=== PATIENT | female | born 1980 | race Caucasian/White ===

== ENCOUNTER 2018-03-05 06:28 | Inpatient (IN) | payer BC, OTHER ==
[~2018-03-05 06:28] MED LIST: CEFAZOLIN 2 GM/50 ML (PMX) 50 ML IVPB; SOD CHLORIDE 0.9% 1,000 ML IV
[2018-03-05] MEDS: INSULIN ASPART [NOVOLOG] 3 ML PEN SC ×5 (07:05→20:28)
[2018-03-05 07:09] LABS: ADD MAN DIFF? NO
[2018-03-05 07:13] LABS: WHITE BLOOD COUNT 9.9 10^3/ul (4.8-10.8)
[2018-03-05 07:13] LABS: BASOPHIL # 0.1 10^3/ul (0.0-0.1); BASOPHILS % 0.7 % (0.0-2.0); EOSINOPHILS # 0.1 10^3/ul (0.0-0.5); HEMATOCRIT 35.8 % (37.0-47.0); HEMOGLOBIN 12.6 g/dl (12.0-16.0); MEAN CORPUSCULAR HEMOGLOBIN 30.6 pg (29.0-33.0); MEAN CORPUSCULAR HGB CONC 35.2 g/dl (32.0-37.0); MEAN CORPUSCULAR VOLUME 86.9 fl (82.0-101.0); MEAN PLATELET VOLUME 9.2 fl (7.4-10.4); MONOCYTE # 0.7 10^3/ul (0.3-0.9); NEUTROPHIL # 6.9 10^3/ul (1.6-7.5); NEUTROPHILS % 70.1 % (39.0-77.0); PLATELET COUNT 266 10^3/UL (140-415); RED BLOOD COUNT 4.12 10^6/ul (4.20-5.40); RED CELL DISTRIBUTION WIDTH 12.1 % (11.5-14.5)
[2018-03-05 07:32] LABS: ALANINE AMINOTRANSFERASE 36 IU/L (13-69); ALBUMIN 4.3 g/dl (3.3-4.9); ALBUMIN/GLOBULIN RATIO 1.34; ALKALINE PHOSPHATASE 117 IU/L (42-121); ANION GAP 17 (8-16); ASPARTATE AMINO TRANSFERASE 20 IU/L (15-46); BILIRUBIN,INDIRECT 0.4 mg/dl (0-1.1); BILIRUBIN,TOTAL 0.4 mg/dl (0.2-1.3); CARBON DIOXIDE 27 mmol/L (21-31); CHLORIDE 98 mmol/L (97-110); GLUCOSE 301 mg/dl (70-220); TOTAL PROTEIN 7.5 g/dl (6.1-8.1)
[2018-03-05 07:34] LABS: INR 0.83; PROTIME 11.5 Sec (11.9-14.9); PT RATIO 0.9
[2018-03-05 07:35] LABS: BLOOD UREA NITROGEN 16 mg/dl (7-20); CALCIUM 9.4 mg/dl (8.4-10.2); CREATININE 0.54 mg/dl (0.44-1.00); PARTIAL THROMBOPLASTIN TIME 33.8 Sec (25.0-35.0); POTASSIUM 4.2 mmol/L (3.5-5.1); SODIUM 138 mmol/L (135-144)
[2018-03-05] MEDS ORDERED: MIDAZOLAM 1 MG/ML 2 ML INJ (08:04)
[2018-03-05] MEDS: LIDOCAINE 1%/EPI 30 ML INJ (08:56)
[2018-03-05] MEDS: BUPIVACAINE 0.5% (SDV) 30 ML INJ (08:56)
[2018-03-05] MEDS: POLYMYXIN/BACITRACIN 1L IRRIG (08:56)
[2018-03-05] MEDS ORDERED: morphine 10 MG INJ (11:32)
[2018-03-05] MEDS ORDERED: LIDOCAINE 2% (SDV) 5 ML INJ (12:28)
[2018-03-05] MEDS ORDERED: CEFAZOLIN 1 GM INJ (12:28)
[2018-03-05] MEDS ORDERED: ROCURONIUM 50 MG INJ (12:28)
[2018-03-05] MEDS ORDERED: PROPOFOL 20 ML (12:28)
[2018-03-05] MEDS ORDERED: ONDANSETRON 4 MG INJ (12:40)
[2018-03-05] MEDS ORDERED: SUGAMMADEX SODIUM 200 MG/2 ML VIAL IV (12:41)
[2018-03-05] MEDS ORDERED: NACL 0.9% 3 ML SYG IV (13:00)
[2018-03-05] MEDS ORDERED: DOCUSATE SODIUM 100 MG CAP PO (13:00)
[2018-03-05] MEDS ORDERED: SENNA/DOCUSATE NA (8.6MG/50MG) TAB PO (13:00)
[2018-03-05] MEDS ORDERED: HYDROCODONE/APAP (10/325) TAB PO (13:00)
[2018-03-05] MEDS ORDERED: HYDROmorphONE (0.2 MG/ML) 10ML SYG IV ×2 (13:14→13:30)
[2018-03-05] MEDS: HYDROmorphONE (0.2 MG/ML) 10ML SYG IV ×7 (13:17→17:09)
[2018-03-05] MEDS: MIDAZOLAM 1 MG/ML 2 ML INJ IV (13:27)
[2018-03-05] MEDS ORDERED: FENTAnyl 50 MCG/ML VIAL IV (13:30)
[2018-03-05] MEDS ORDERED: ONDANSETRON 4 MG INJ IV (13:30)
[2018-03-05] MEDS: FENTAnyl 50 MCG/ML VIAL IV ×2 (14:44→17:08)
[2018-03-05 14:54] LABS: ADD MAN DIFF? NO
[2018-03-05 15:05] LABS: BASOPHILS % 0.3 % (0.0-2.0); EOSINOPHILS % 0.1 % (0.0-7.0); HEMATOCRIT 30.7 % (37.0-47.0); HEMOGLOBIN 10.6 g/dl (12.0-16.0); LYMPHOCYTES # 1.1 10^3/ul (0.8-2.9); LYMPHOCYTES % 9.1 % (15.0-51.0); MEAN CORPUSCULAR HEMOGLOBIN 30.8 pg (29.0-33.0); MEAN CORPUSCULAR HGB CONC 34.5 g/dl (32.0-37.0); MEAN CORPUSCULAR VOLUME 89.2 fl (82.0-101.0); MEAN PLATELET VOLUME 9.2 fl (7.4-10.4); MONOCYTE # 0.8 10^3/ul (0.3-0.9); MONOCYTES % 6.7 % (0.0-11.0); NEUTROPHILS % 82.9 % (39.0-77.0); PLATELET COUNT 255 10^3/UL (140-415); RED BLOOD COUNT 3.44 10^6/ul (4.20-5.40); RED CELL DISTRIBUTION WIDTH 12.5 % (11.5-14.5)
[2018-03-05 15:05] LABS: WHITE BLOOD COUNT 12.1 10^3/ul (4.8-10.8)
[2018-03-05 15:18] LABS: ANION GAP 13 (8-16); CARBON DIOXIDE 28 mmol/L (21-31); CHLORIDE 101 mmol/L (97-110); GLUCOSE 250 mg/dl (70-220)
[2018-03-05 15:19] LABS: BLOOD UREA NITROGEN 14 mg/dl (7-20); CALCIUM 8.2 mg/dl (8.4-10.2); CREATININE 0.56 mg/dl (0.44-1.00); POTASSIUM 3.9 mmol/L (3.5-5.1); SODIUM 138 mmol/L (135-144)
[2018-03-05] MEDS: SOD CHLORIDE 0.9% 1,000 ML IV ×2 (17:44→18:30)
[2018-03-05] MEDS: HYDROmorphONE 0.5 MG/0.5 ML SYG IV ×2 (18:12→21:16)
[2018-03-05] MEDS ORDERED: GLUCOSE GEL 15 GRAM TUBE PO ×2 (18:30)
[2018-03-05] MEDS ORDERED: GLUCOSE GEL 15 GRAM TUBE BUCCAL (18:30)
[2018-03-05] MEDS ORDERED: DEXTROSE 50% 50 ML SYRINGE IV ×2 (18:30)
[2018-03-05] MEDS ORDERED: GLUCAGON 1 MG INJ IM (18:30)
[2018-03-05] MEDS: ATORVASTATIN 10 MG TAB PO (20:23)
[2018-03-05] MEDS: ONDANSETRON 4 MG INJ IV (20:23)
[2018-03-05 20:48] LABS: HEMATOCRIT 29.9 % (37.0-47.0); HEMOGLOBIN 10.1 g/dl (12.0-16.0)
[2018-03-06] MEDS: HYDROmorphONE 0.5 MG/0.5 ML SYG IV (00:21)
[2018-03-06] MEDS: ACCU-CHEK XX (02:00)
[2018-03-06] MEDS ORDERED: ACCU-CHEK XX (02:00)
[2018-03-06] MEDS: KETOROLAC 30 MG INJ IV ×3 (06:54→21:45)
[2018-03-06] MEDS: ONDANSETRON 4 MG INJ IV (06:59)
[2018-03-06] MEDS: INSULIN ASPART [NOVOLOG] 3 ML PEN SC ×8 (07:43→20:16)
[2018-03-06] MEDS: SOD CHLORIDE 0.9% 1,000 ML IV ×2 (07:45→21:41)
[2018-03-06] MEDS: SERTRALINE 50 MG TAB PO (08:18)
[2018-03-06] MEDS: metFORMIN 500 MG TAB PO ×2 (08:18→20:14)
[2018-03-06] MEDS: FERROUS SULFATE (EC) 325 MG TAB PO (08:18)
[2018-03-06] MEDS: DOCUSATE SODIUM 100 MG CAP PO ×2 (08:18→20:14)
[2018-03-06] MEDS: LISINOPRIL 5 MG TAB PO (08:19)
[2018-03-06] MEDS ORDERED: glipiZIDE 10 MG TAB PO (09:00)
[2018-03-06 09:25] LABS: ADD MAN DIFF? NO
[2018-03-06 09:28] LABS: BASOPHILS % 0.3 % (0.0-2.0); EOSINOPHILS % 0.2 % (0.0-7.0); HEMATOCRIT 28.3 % (37.0-47.0); HEMOGLOBIN 9.5 g/dl (12.0-16.0); LYMPHOCYTES # 0.7 10^3/ul (0.8-2.9); LYMPHOCYTES % 11.5 % (15.0-51.0); MEAN CORPUSCULAR HEMOGLOBIN 30.8 pg (29.0-33.0); MEAN CORPUSCULAR HGB CONC 33.6 g/dl (32.0-37.0); MEAN CORPUSCULAR VOLUME 91.9 fl (82.0-101.0); MEAN PLATELET VOLUME 9.7 fl (7.4-10.4); MONOCYTE # 0.6 10^3/ul (0.3-0.9); MONOCYTES % 9.8 % (0.0-11.0); NEUTROPHIL # 4.4 10^3/ul (1.6-7.5); NEUTROPHILS % 77.7 % (39.0-77.0); PLATELET COUNT 206 10^3/UL (140-415); RED BLOOD COUNT 3.08 10^6/ul (4.20-5.40); RED CELL DISTRIBUTION WIDTH 12.8 % (11.5-14.5)
[2018-03-06 09:28] LABS: WHITE BLOOD COUNT 5.7 10^3/ul (4.8-10.8)
[2018-03-06 09:35] LABS: HEMOGLOBIN A1C 7.5 % (0-5.9)
[2018-03-06 09:50] LABS: ANION GAP 12 (8-16); BLOOD UREA NITROGEN 7 mg/dl (7-20); CARBON DIOXIDE 29 mmol/L (21-31); CHLORIDE 102 mmol/L (97-110); CREATININE 0.59 mg/dl (0.44-1.00); GLUCOSE 218 mg/dl (70-220); POTASSIUM 3.3 mmol/L (3.5-5.1); SODIUM 140 mmol/L (135-144)
[2018-03-06] MEDS: ATORVASTATIN 10 MG TAB PO (20:14)
[2018-03-06] MEDS: OXYCODONE/ACETAMINOPHEN (5/325) TAB PO (20:14)
[2018-03-07] MEDS: ACCU-CHEK XX (02:03)
[2018-03-07] MEDS: KETOROLAC 30 MG INJ IV ×3 (05:28→21:33)
[2018-03-07 06:44] LABS: ANION GAP 15 (8-16); BLOOD UREA NITROGEN 8 mg/dl (7-20); CALCIUM 8.5 mg/dl (8.4-10.2); CARBON DIOXIDE 27 mmol/L (21-31); CHLORIDE 103 mmol/L (97-110); CREATININE 0.56 mg/dl (0.44-1.00); GLUCOSE 216 mg/dl (70-220); POTASSIUM 3.2 mmol/L (3.5-5.1); SODIUM 142 mmol/L (135-144)
[2018-03-07] MEDS: INSULIN ASPART [NOVOLOG] 3 ML PEN SC ×8 (08:00→20:24)
[2018-03-07] MEDS: DOCUSATE SODIUM 100 MG CAP PO ×2 (08:39→20:06)
[2018-03-07] MEDS: FERROUS SULFATE (EC) 325 MG TAB PO (08:39)
[2018-03-07] MEDS: LISINOPRIL 5 MG TAB PO (08:42)
[2018-03-07] MEDS: SERTRALINE 50 MG TAB PO (08:42)
[2018-03-07] MEDS: metFORMIN 500 MG TAB PO ×2 (08:43→20:06)
[2018-03-07] MEDS: SOD CHLORIDE 0.9% 1,000 ML IV (10:30)
[2018-03-07] MEDS: OXYCODONE/ACETAMINOPHEN (5/325) TAB PO ×2 (11:39→20:07)
[2018-03-07] MEDS: NS + KCL 20 MEQ 1,000 ML IV (17:00)
[2018-03-07] MEDS: POTASSIUM CHLORIDE (SR) 20 MEQ TAB PO (17:15)
[2018-03-07] MEDS: ATORVASTATIN 10 MG TAB PO (20:06)
[2018-03-08] MEDS: OXYCODONE/ACETAMINOPHEN (5/325) TAB PO ×2 (00:20→22:10)
[2018-03-08] MEDS: ACCU-CHEK XX (02:47)
[2018-03-08] MEDS: KETOROLAC 30 MG INJ IV ×3 (02:51→20:30)
[2018-03-08 06:08] LABS: ADD MAN DIFF? NO
[2018-03-08 06:13] LABS: BASOPHILS % 0.3 % (0.0-2.0); EOSINOPHILS # 0.2 10^3/ul (0.0-0.5); EOSINOPHILS % 2.8 % (0.0-7.0); HEMATOCRIT 23.5 % (37.0-47.0); HEMOGLOBIN 7.8 g/dl (12.0-16.0); LYMPHOCYTES # 1.2 10^3/ul (0.8-2.9); LYMPHOCYTES % 17.7 % (15.0-51.0); MEAN CORPUSCULAR HEMOGLOBIN 30.6 pg (29.0-33.0); MEAN CORPUSCULAR HGB CONC 33.2 g/dl (32.0-37.0); MEAN CORPUSCULAR VOLUME 92.2 fl (82.0-101.0); MEAN PLATELET VOLUME 9.5 fl (7.4-10.4); MONOCYTE # 0.6 10^3/ul (0.3-0.9); MONOCYTES % 8.9 % (0.0-11.0); NEUTROPHIL # 4.7 10^3/ul (1.6-7.5); NEUTROPHILS % 68.8 % (39.0-77.0); NUCLEATED RED BLOOD CELLS% 0.3 /100WBC (0.0-0.0); PLATELET COUNT 206 10^3/UL (140-415); RED BLOOD COUNT 2.55 10^6/ul (4.20-5.40); RED CELL DISTRIBUTION WIDTH 12.8 % (11.5-14.5)
[2018-03-08 06:13] LABS: WHITE BLOOD COUNT 6.8 10^3/ul (4.8-10.8)
[2018-03-08 06:27] LABS: ANION GAP 16 (8-16); BLOOD UREA NITROGEN 10 mg/dl (7-20); CALCIUM 8.4 mg/dl (8.4-10.2); CARBON DIOXIDE 27 mmol/L (21-31); CHLORIDE 104 mmol/L (97-110); CREATININE 0.51 mg/dl (0.44-1.00); GLUCOSE 176 mg/dl (70-220); POTASSIUM 3.6 mmol/L (3.5-5.1); SODIUM 143 mmol/L (135-144)
[2018-03-08] MEDS: INSULIN ASPART [NOVOLOG] 3 ML PEN SC ×7 (08:00→21:00)
[2018-03-08] MEDS: SERTRALINE 50 MG TAB PO (08:40)
[2018-03-08] MEDS: metFORMIN 500 MG TAB PO ×2 (08:41→20:30)
[2018-03-08] MEDS: FERROUS SULFATE (EC) 325 MG TAB PO (08:41)
[2018-03-08] MEDS: DOCUSATE SODIUM 100 MG CAP PO ×2 (08:41→20:30)
[2018-03-08] MEDS: LISINOPRIL 5 MG TAB PO (08:41)
[2018-03-08] MEDS: ONDANSETRON 4 MG INJ IV (11:53)
[2018-03-08] MEDS: NS + KCL 20 MEQ 1,000 ML IV (12:09)
[2018-03-08] MEDS: ATORVASTATIN 10 MG TAB PO (20:30)
[2018-03-08] MEDS: INSULIN GLARGINE [LANtus] 3 ML PEN SC (20:47)
[2018-03-09] MEDS: ACCU-CHEK XX (02:00)
[2018-03-09] MEDS: OXYCODONE/ACETAMINOPHEN (5/325) TAB PO ×2 (05:45→13:08)
[2018-03-09] MEDS: NS + KCL 20 MEQ 1,000 ML IV ×2 (08:30→15:49)
[2018-03-09] MEDS: SERTRALINE 50 MG TAB PO (08:50)
[2018-03-09] MEDS: DOCUSATE SODIUM 100 MG CAP PO ×2 (08:51→21:01)
[2018-03-09] MEDS: FERROUS SULFATE (EC) 325 MG TAB PO (08:51)
[2018-03-09] MEDS: LISINOPRIL 5 MG TAB PO (08:51)
[2018-03-09] MEDS: SENNA TAB PO (08:51)
[2018-03-09] MEDS: metFORMIN 500 MG TAB PO ×2 (08:51→21:01)
[2018-03-09] MEDS: HYDROmorphONE 0.5 MG/0.5 ML SYG IV ×2 (08:52→21:15)
[2018-03-09] MEDS: INSULIN ASPART [NOVOLOG] 3 ML PEN SC ×7 (08:54→21:00)
[2018-03-09 12:27] LABS: ADD MAN DIFF? NO
[2018-03-09 12:39] LABS: BASOPHILS % 0.2 % (0.0-2.0); EOSINOPHILS # 0.1 10^3/ul (0.0-0.5); EOSINOPHILS % 2.3 % (0.0-7.0); HEMATOCRIT 23.5 % (37.0-47.0); HEMOGLOBIN 7.6 g/dl (12.0-16.0); MEAN CORPUSCULAR HEMOGLOBIN 29.7 pg (29.0-33.0); MEAN CORPUSCULAR HGB CONC 32.3 g/dl (32.0-37.0); MEAN CORPUSCULAR VOLUME 91.8 fl (82.0-101.0); MEAN PLATELET VOLUME 9.4 fl (7.4-10.4); MONOCYTE # 0.5 10^3/ul (0.3-0.9); MONOCYTES % 9.9 % (0.0-11.0); NEUTROPHIL # 3.1 10^3/ul (1.6-7.5); NEUTROPHILS % 65.9 % (39.0-77.0); NUCLEATED RED BLOOD CELLS% 0.4 /100WBC (0.0-0.0); PLATELET COUNT 216 10^3/UL (140-415); RED BLOOD COUNT 2.56 10^6/ul (4.20-5.40); RED CELL DISTRIBUTION WIDTH 12.8 % (11.5-14.5)
[2018-03-09 12:39] LABS: WHITE BLOOD COUNT 4.7 10^3/ul (4.8-10.8)
[2018-03-09 14:33] LABS: IRON 40 ug/dl (35-150)
[2018-03-09 14:42] LABS: % IRON SATURATION 15 % SAT (22-52); TOTAL IRON BINDING CAPACITY 267 ug/dl (241-421)
[2018-03-09 16:22] LABS: FERRITIN 67.2 ng/ml (6.2-137.0)
[2018-03-09 17:56] LABS: IMMEDIATE SPIN CROSSMATCH 1 2
[2018-03-09] MEDS: INSULIN GLARGINE [LANtus] 3 ML PEN SC (21:00)
[2018-03-09] MEDS: ATORVASTATIN 10 MG TAB PO (21:01)
[2018-03-09 22:41] LABS: HEMATOCRIT 26.8 % (37.0-47.0); HEMOGLOBIN 8.9 g/dl (12.0-16.0)
[2018-03-10] MEDS: ACCU-CHEK XX (02:00)
[2018-03-10] MEDS: INSULIN ASPART [NOVOLOG] 3 ML PEN SC ×4 (08:00→12:36)
[2018-03-10] MEDS: ONDANSETRON 4 MG INJ IV (08:40)
[2018-03-10] MEDS: metFORMIN 500 MG TAB PO (08:40)
[2018-03-10] MEDS: FERROUS SULFATE (EC) 325 MG TAB PO (08:40)
[2018-03-10] MEDS: LISINOPRIL 5 MG TAB PO (08:40)
[2018-03-10] MEDS: HYDROmorphONE 0.5 MG/0.5 ML SYG IV (08:41)
[2018-03-10] MEDS: DOCUSATE SODIUM 100 MG CAP PO (08:41)
[2018-03-10 09:11] LABS: ADD MAN DIFF? NO
[2018-03-10 09:20] LABS: BASOPHILS % 0.3 % (0.0-2.0); EOSINOPHILS # 0.1 10^3/ul (0.0-0.5); EOSINOPHILS % 1.8 % (0.0-7.0); HEMATOCRIT 28.7 % (37.0-47.0); HEMOGLOBIN 9.5 g/dl (12.0-16.0); LYMPHOCYTES # 1.1 10^3/ul (0.8-2.9); LYMPHOCYTES % 15.9 % (15.0-51.0); MEAN CORPUSCULAR HGB CONC 33.1 g/dl (32.0-37.0); MEAN CORPUSCULAR VOLUME 90.5 fl (82.0-101.0); MEAN PLATELET VOLUME 9.2 fl (7.4-10.4); MONOCYTE # 0.5 10^3/ul (0.3-0.9); NEUTROPHIL # 4.8 10^3/ul (1.6-7.5); NEUTROPHILS % 71.3 % (39.0-77.0); NUCLEATED RED BLOOD CELLS # 0.1 10^3/ul (0.0-0.0); NUCLEATED RED BLOOD CELLS% 0.8 /100WBC (0.0-0.0); PLATELET COUNT 246 10^3/UL (140-415); RED BLOOD COUNT 3.17 10^6/ul (4.20-5.40)
[2018-03-10 09:20] LABS: WHITE BLOOD COUNT 6.7 10^3/ul (4.8-10.8)
[2018-03-10 09:49] LABS: ANION GAP 12 (8-16); BLOOD UREA NITROGEN 6 mg/dl (7-20); CALCIUM 8.6 mg/dl (8.4-10.2); CARBON DIOXIDE 27 mmol/L (21-31); CHLORIDE 106 mmol/L (97-110); CREATININE 0.46 mg/dl (0.44-1.00); GLUCOSE 118 mg/dl (70-220); POTASSIUM 3.8 mmol/L (3.5-5.1); SODIUM 141 mmol/L (135-144)
[2018-03-10] MEDS: SERTRALINE 50 MG TAB PO (12:29)
[2018-03-10] MEDS: OXYCODONE/ACETAMINOPHEN (5/325) TAB PO (12:36)
== END 2018-03-10 15:47 | disposition home or self-care (01) | DRG 336 ==
LOC: SDS 06:28 → MS4 03-07 01:22 → SDS 06:28 → MS4 03-06 10:54 → SDS 14:00 → REC 14:00 → MS4 16:16 → REC 16:16 → SDS 14:00 → MS4 16:16
PROVIDERS: Surgery Surgical Critical Care
PROC: 0WUF4JZ Supplement Abdominal Wall with Synthetic Substitute, Percutaneous Endoscopic Approach (ICD-10-PCS; principal; 2018-03-05 07:30)
PROC: 0DNU4ZZ Release Omentum, Percutaneous Endoscopic Approach (ICD-10-PCS; 2018-03-05 07:30)
PROC: 30233N1 Transfusion of Nonautologous Red Blood Cells into Peripheral Vein, Percutaneous Approach (ICD-10-PCS; 2018-03-05 08:31)
DX: K43.6 Other and unspecified ventral hernia with obstruction, without gangrene (principal); D62 Acute posthemorrhagic anemia; I10 Essential (primary) hypertension; E78.5 Hyperlipidemia, unspecified; E11.9 Type 2 diabetes mellitus without complications; E87.6 Hypokalemia; E66.9 Obesity, unspecified; Z68.30 Body mass index [BMI] 30.0-30.9, adult; Z87.891 Personal history of nicotine dependence; Z79.4 Long term (current) use of insulin
CPT/HCPCS: 36430; 80048; 80053; 82607; 82728; 82962; 83036; 83540; 85014; 85018; 85025; 85610; 85730; 86850; 86900; 86901; 86920; 87086; 97116; 97163; 97530; G0378